=== PATIENT | male | born 1970 | race Caucasian/White ===

== ENCOUNTER → 2020-01-07 | Outpatient (CLI) | payer OTHER ==
[~2020-01-07] MED LIST: AMOX500 PO; CYCL10 PO; Flomax0.4 MG PO; GABA100; HYDR1TAB94 PO; IBUP400 PO; IBUP600 PO; IBUP800 PO; INCARCERATION; Naprosyn500 MG PO; Norco 5-325 Ta1 EACH PO; Percocet 5-3251 EACH PO; Prednisone20 MG PO; Prednisone50 MG PO; Robaxin500 MG PO; TRAM50; Ultram50 MG PO; Valium5 MG PO
== END ==
LOC: PLD 12:31 → LAB SHORT 12:31
DX: L57.0 Actinic keratosis (principal)
CPT/HCPCS: 88305

== ENCOUNTER 2024-05-28 14:07 | Emergency (ER) | payer OTHER ==
[~2024-05-28] VITALS: Ht 175.3 cm; Wt 81.7 kg
[2024-05-28 14:31] VITALS: BP 142/96
[2024-05-28] MEDS ORDERED: Ketorolac Tromethamine 30mg Vial IM ONE (15:40)
[2024-05-28] MEDS ORDERED: Acetaminophen 500 MG Tab PO ONE (15:40)
[2024-05-28] MEDS ORDERED: Diphth,Pertuss(Acell),Tet Vac 0.5 ML VIAL IM ONE (15:40)
== END 2024-05-28 16:15 | disposition home or self-care (01) ==
LOC: ER 14:07
DX: S50.12XA Contusion of left forearm, initial encounter (principal); Z79.899 Other long term (current) drug therapy; F17.210 Nicotine dependence, cigarettes, uncomplicated; W01.198A Fall on same level from slipping, tripping and stumbling with subsequent striking against other object, initial encounter
CPT/HCPCS: 73090; 90715; 99283-25; A9270; J1885